=== PATIENT | male | born 1965 | race African-American/Black ===

== ENCOUNTER 2024-05-21 20:20 | Emergency (ER) | payer MEDICAID ==
[~2024-05-21] VITALS: Ht 177.8 cm; Wt 81.0 kg
[~2024-05-21 20:20] MED LIST: AMLO10TA80 MT; ASPI-1497 MT; ATOR40TA70 MT; BICT1TAB PO; CLOP-31 MT; FOLI0.4T6 MT; LISI-649 MT; METF-414 PO; PANT40TA51 MT; SERT25TA74 MT; TRAZ-251 MT
[2024-05-21 20:22] VITALS: O2SAT 99
[2024-05-22 01:04] LABS: BASOPHILS % 0.5 % (0.0-2.0); EOSINOPHILS % 0.9 % (0.0-5.0); HEMOGLOBIN. 13.9 g/dL (14.0-18.0); LYMPHOCYTES % 19.7 % (20.0-50.0); MEAN CORPUSCULAR VOLUME 81.9 fL (80.0-94.0); MEAN PLATELET VOLUME 9.1 fl (7.4-10.4); NEUTROPHILS % 72.9 % (40.0-76.0); PLATELET 285 x1000/uL (130-400); RED BLOOD CELL COUNT 5.13 mill/uL (4.7-6.1); RED CELL DISTRIBUTION WIDTH 17.2 % (11.6-14.6); WHITE BLOOD COUNT 7.3 x1000/uL (4.5-11.0)
[2024-05-22 01:09] LABS: POTASSIUM 4.4 mEq/L (3.5-5.1)
[2024-05-22 01:10] LABS: CALCIUM 9.8 mg/dL (8.7-10.4)
[2024-05-22 01:15] LABS: CREATININE 1.5 mg/dL (0.6-1.3)
[2024-05-22 04:32] VITALS: BP 133/65; PULSE 60; RESP 18; TEMP 36.7; O2SAT 100
== END 2024-05-22 04:31 | disposition home or self-care (01) ==
LOC: ER 20:20
DX: I69.354 Hemiplegia and hemiparesis following cerebral infarction affecting left non-dominant side (principal); F03.90 Unspecified dementia, unspecified severity, without behavioral disturbance, psychotic disturbance, mood disturbance, and anxiety; E11.9 Type 2 diabetes mellitus without complications; I10 Essential (primary) hypertension; W19.XXXA Unspecified fall, initial encounter; Z88.6 Allergy status to analgesic agent; Z79.82 Long term (current) use of aspirin; Z79.899 Other long term (current) drug therapy
CPT/HCPCS: 36415; 80048; 85025; 99283